=== PATIENT | female | born 1980 | race American Indian/Alaskan Native ===

== ENCOUNTER 2017-01-29 18:04 | Outpatient (CLI) | payer MEDICAID ==
[2017-01-29] MEDS ORDERED: LACTATED RINGERS 500 ML IV ONE (18:24)
[2017-01-29 18:54] LABS: Bacteria,Urine 2+ /HPF (Negative); Bilirubin,Urine NEG (Negative); Blood,Urine SM (Negative); Ketones,Urine NEG (Negative); Leukocyte Esterase,Urine LG (Negative); Mucus,Urine FEW /HPF; Nitrite,Urine NEG (Negative); Protein,Urine <15 mg/dL mg/dL (Negative); Urobilinogen,Urine < 2.0 mg/dL (<2.0)
[2017-01-29 18:55] LABS: Trichomonas,Urine Present /HPF
[2017-01-29 20:32] LABS: Urine Drugs of Abuse Note Disclamer
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
[2017-01-29] MEDS ORDERED: MACROBID PO SCH (22:00)
[2017-01-30 00:41] VITALS: BP 105/61
--- NOTE | 2017-01-30 09:11 | Event Note ---
Date: 01/29/17 Rx for Macrobid 100 mg, #14, 1 po BID was called to [facility] pharmacy on [facility]. Advised patient she must rest more and increase her water intake. Advised patient to follow up with [facility]-INSTRUCTIONAL MATERIAL DIRECTOR on Wednesday02/01/17.
--- NOTE | 2017-01-30 10:41 | Ultrasound Report ---
Gestation: Single Position: Cephalic Amniotic Fluid: ABEBE = 15.1 cm Placenta: Fungal and right lateral Placental Grade: 1 Heart Rate: 128 BPM Cervical length: 3.2 cm (Normal > 3 cm)
== END 2017-01-30 02:03 | disposition home or self-care (01) ==
LOC: TRG 18:04
PROVIDERS: ATTEND Obstetrics & Gynecology
DX: O09.522 Supervision of elderly multigravida, second trimester (principal); O47.02 False labor before 37 completed weeks of gestation, second trimester; Z3A.27 27 weeks gestation of pregnancy
CPT/HCPCS: 36415; 59025; 76815; 80307; 81001; 82731; 87086; 96360; J7120

== ENCOUNTER 2017-04-04 13:21 | Inpatient (IN) | payer MEDICAID ==
[2017-04-04] MEDS ORDERED: BRETHINE SUB-Q PRN (14:02)
[2017-04-04] MEDS ORDERED: XYLOCAINE 2% INFILTRATI ONE (14:02)
[2017-04-04] MEDS ORDERED: ePHEDrine SULFATE IV PRN ×3 (14:02→17:03)
[2017-04-04] MEDS ORDERED: MINERAL OIL PO PRN (14:02)
[2017-04-04] MEDS ORDERED: BRETHINE IVP PRN (14:02)
[2017-04-04] MEDS ORDERED: VALTREX PO SCH (14:30)
--- NOTE | 2017-04-04 14:58 | History and Physical Report ---
History of Present Illness Date of examination: 04/04/17 Date of admission: 04/04/17 13:21 Chief complaint: Leaking of water from vagina since 12:00 PM today. History of present illness: 36 year old female presents at 35 weeks, 4 days gestation complaining of leaking of fluid from vagina since 12:00 PM today. . EDC 05/05/17. Patient has received care at [facility] OB-FUDGE CANDY MAKER. No records available here in L&D. Patient has a history of bipolar depression. She has a history of 3 previous deliveries and placental abruption during a previous after abdominal trauma. She also has a history of PIH. Past History Past Medical History: other (bipolar depression; PIH with previous ) Past Surgical History: no surgical history FUDGE CANDY MAKER History: herpes (history of + HSV 2 serology; no history of outbreaks; pt. denies lesions or prodromal symptoms) Family/Genetic History: diabetes, heart disease, hypertension, stroke Social history: single, smoking (smoked marijuana during ; pt. states she has stopped smoking), full code - Obstetrical History Expected Date of Delivery: 05/05/17 Actual Gestation: 35 Week(s) 4 Day(s) : 6 Para: 5 Hx # Term Pregnancies: 2 Number of Pregnancies: 4 Spontaneous Abortions: 0 Induced : 0 Number of Living Children: 4 Medications and Allergies Allergies Allergy/AdvReac Type Severity Reaction Status Date / Time penicillin Allergy Unknown Verified 01/21/15 17:59 Home Medications Medication Instructions Recorded Confirmed Last Taken Type Docusate Sodium [Colace CAP] 100 mg PO BID #60 capsule 01/24/15 Unknown Rx Active Meds: Active Medications Bupropion HCl (Wellbutrin Xl) 300 mg PO QDAY JESSICA Lactated Ringer's (Lactated Ringers) 1,000 mls @ 125 mls/hr IV DIRECT JESSICA Oxytocin/Sodium Chloride (Pitocin/Ns 20 Unit/1000ml Drip) 20 units in 1,000 mls @ 125 mls/hr IV DIRECT JESSICA Oxytocin/Sodium Chloride (Pitocin/Ns 30 Unit/500ml) 30 units in 500 mls @ 0 mls /hr IV TITR JESSIAC; Per Protocol PRN Reason: Protocol Vancomycin HCl (Vancomycin/Ns 1 Gm/250 Ml) 1 gm in 250 mls @ 167.007 mls/hr IV Q12H JESSICA PRN Reason: Protocol Mineral Oil (Mineral Oil) 30 ml PO QHS PRN PRN Reason: Constipation Valacyclovir HCl (Valtrex) 500 mg PO BID JESSICA Review of Systems All systems: negative (leaking of water from vagina) - Vital Signs Vital signs: Vital Signs Temp Pulse Resp BP 98.2 F 99 H 18 116/63 04/04/17 13:43 04/04/17 13:43 04/04/17 13:43 04/04/17 13:43 Temp Pulse Resp BP Pulse Ox 98.2 F 80 18 113/59 04/04/17 13:43 04/04/17 14:42 04/04/17 13:43 04/04/17 14:42 - Physical Exam Cardiovascular: Regular rate, Normal S1, Normal S2 Lungs: Positive: Clear to auscultation Abdomen: Positive: normal appearance Genitourinary (Female): Positive: normal external genitalia (no lesions seen on careful exam with bright light upon admission). Negative: perineal/vulvar lesions Vagina: Positive: other (pooling of clear amniotic fluid, large amount; positive fern test) Uterus: Positive: enlarged. Negative: tender Anus/Rectum: Positive: normal perianal skin Extremities: Positive: normal. Negative: tenderness, edema - Obstetrical FHR: category 1 Uterine Contraction Monitor Mode: External Cervical Dilatation: 3 Cervical Effacement Percentage: 50 station: -4 Uterine Contraction Pattern: Irregular Uterine Contraction Intensity: Moderate Results Result Diagrams: 04/04/17 14:28 All other labs normal. Assessment and Plan A: at 35 weeks, 4 days gestation. Spontaneous rupture of membranes. GBS unknown. Penicillin allergy. + HSV 2 serology. P: Admit. GBS prophylaxis. Valtrex suppression for + HSV 2 serology. Augmentation of labor. Anticipate . Dr. Leach also saw and spoke with patient today and is aware of SROM at 35 weeks, 4 days gestation.
[2017-04-04] MEDS ORDERED: VANCOMYCIN/NS 1 GM/250 ML 1 GM/250 ML BAG IV SCH (15:00)
[2017-04-04] MEDS ORDERED: LACTATED RINGERS 1,000 ML IV SCH (15:00)
[2017-04-04] MEDS ORDERED: PITOCin/NS 20 UNIT/1000ML DRIP 20 UNITS/1,000 ML BAG IV SCH (15:00)
[2017-04-04 15:02] LABS: Hematocrit 29.1 % (30.3-42.9); Hemoglobin 9.6 gm/dl (10.1-14.3); Mean Corpuscular HGB Conc 33 % (30-34); Mean Corpuscular Hemoglobin 25 pg (28-32); Mean Corpuscular Volume 75 fl (79-97); Platelet Count 232 K/mm3 (140-440); Red Cell Distribution Width 15.5 % (13.2-15.2); White Blood Count 9.1 K/mm3 (4.5-11.0)
[2017-04-04] MEDS: PITOCin/NS 30 UNIT/500ML 30 UNITS/500 ML BAG IV SCH ×5 (15:36→18:11)
[2017-04-04] MEDS ORDERED: ePHEDrine SULFATE ONE (15:42)
[2017-04-04] MEDS ORDERED: NARCAN 2 MG/2 ML IV PRN (16:07)
--- NOTE | 2017-04-04 16:07 | Anesthesia Consultation ---
Anesthesia Consult and Med Hx Date of service: 04/04/17 - Airway Anesthetic Teeth Evaluation: Good ROM Head & Neck: Adequate Mental/Hyoid Distance: Adequate Mallampati Class: Class II Intubation Access Assessment: Probably Good - Pulmonary Exam CTA: Yes - Cardiac Exam Cardiac Exam: RRR - Pre-Operative Health Status ASA Pre-Surgery Classification: ASA2 Proposed Anesthetic Plan: Epidural - Pulmonary Hx Asthma: No COPD: No Hx Pneumonia: No - Cardiovascular System Hx Hypertension: Yes - Central Nervous System Hx Seizures: No Hx Psychiatric Problems: No - Endocrine Hx Renal Disease: No Hx End Stage Renal Disease: No Hx Hypothyroidism: No Hx Hyperthyroidism: No - Hematic Hx Anemia: Yes Hx Sickle Cell Disease: No - Other Systems Hx Alcohol Use: No
[2017-04-04] MEDS ORDERED: fentaNYL-BUPIV 2 MCG/ML-0.125% 200 MCG/100 ML BAG EPIDURAL SCH (17:00)
[2017-04-04 18:47] LABS: Urine Drugs of Abuse Note Disclamer
[2017-04-04] MEDS ORDERED: NACL 0.9% 1000 ML 1,000 ML VG SCH (18:50)
[2017-04-04] MEDS ORDERED: NACL 0.9% 500 ML 0 ML ONE (18:57)
[2017-04-04] MEDS ORDERED: BRETHINE ONE ×2 (18:59→19:02)
[2017-04-04] MEDS ORDERED: NACL 0.9% 1000 ML 1,000 ML ONE (19:05)
[2017-04-04] MEDS ORDERED: REGLAN ONE (19:07)
[2017-04-04] MEDS ORDERED: BICITRA ONE (19:07)
[2017-04-04] MEDS ORDERED: PEPCID IV ONE (19:07)
--- NOTE | 2017-04-04 19:15 | Event Note ---
Date: 04/04/17 Patient had a prolonged FHR deceleration to tomasa of 60s returning to baseline of 120. Moderate FHR variability. Patient positioned in lateral position, then on hands and knees. Pitocin stopped. O2 per face mask at 10 LPM; IV fluid bolus LR. Amnioinfusion started. Brethine 0.25 mg SQ given. FHR now at baseline of 120 with minimal to moderate variability and no decelerations. Contractions q 4- 6 minutes. Uterus palpates soft between contractions. Notified Dr. Leach of prolonged heart rate deceleration and interventions taken and cervical exam. Patient's cervix is 4-5/60/-1 with a contraction. Will observe closely.
--- NOTE | 2017-04-04 19:42 | Event Note ---
Date: 04/04/17 Patient is now 7 cm dilated and -1 station. FHR baseline 125-130 with moderate variability and accelerations. Contractions have spaced. Pitocin re-started at 2 milliunits per minute. Uterus palpates soft. Patient is comfortable. Fluid bolus stopped. Amnioinfusion continues.
[2017-04-04] MEDS ORDERED: BRETHINE SUB-Q ONE (20:00)
[2017-04-04 20:02] LABS: HIV-1 Antigen p24 Non React (Non React); HIVR-1/2 Ab Non React (Non React)
[2017-04-04] MEDS ORDERED: LANSINOH TP PRN (23:11)
[2017-04-04] MEDS ORDERED: TYLENOL PO PRN (23:11)
[2017-04-04] MEDS ORDERED: TUCKS PAD TP PRN (23:11)
[2017-04-04] MEDS ORDERED: MILK OF MAGNESIA PO PRN (23:11)
[2017-04-04] MEDS ORDERED: DULCOLAX PR PRN (23:11)
--- NOTE | 2017-04-04 23:32 | Procedure Note ---
OB Delivery Note - Vaginal Delivery presentation: vertex Delivery position: OA Intrapartum events: none Delivery induction: none Delivery augmentation: pitocin Delivery monitor: external FHT, external uterine, internal FHT, internal uterine Route of delivery: Delivery placenta: spontaneous Delivery cord: other (short cord) Delivery laceration: none Anesthesia: epidural Delivery comments: Spontaneous vaginal delivery of liveborn male OA over intact perineum with apgars of 7 and 8. Baby's weight 4 lb. 13 oz. Baby delivered easily. Baby bulb suctioned; spontaneous cry and respirations. Short cord. 3 vessel cord double clamped and cut. Baby taken to radiant warmer. NICU and respiratory present for delivery. Spontaneous delivery of intact placenta and membranes by sanchez mechanism. EBL 250 ml. Pitocin to IV fluids after delivery of placenta. Fundus firm and midline. No lacerations noted. Sponge count correct. Vaginal sweep negative. Mother and baby stable in birthing room.
[2017-04-04] MEDS ORDERED: PITOCin/NS 20 UNIT/1000ML DRIP 20,000 MILLIUNITS/1,000 ML BAG IV ONE (23:34)
[2017-04-04] MEDS ORDERED: SODIUM CHLORIDE FLUSH SYRINGE 10 ML IV PRN (23:45)
[2017-04-05] MEDS: MOTRIN PO SCH ×4 (00:33→19:00)
[2017-04-05] MEDS: NORCO 5/325 PO PRN ×3 (01:48→16:40)
[2017-04-05] MEDS ORDERED: WELLBUTRIN XL PO SCH (08:00)
[2017-04-05] MEDS: WELLBUTRIN XL PO SCH (08:15)
--- NOTE | 2017-04-05 09:28 | Progress Note ---
Assessment and Plan A: PPD 1 - stable P: Continue care Subjective - Subjective Date of service: 04/05/17 Principal diagnosis: Patient reports: appetite normal : doing well Objective - Vital Signs Latest vital signs: Vital Signs Temp Pulse Resp BP BP Pulse Ox 04/05/17 08:17 98.6 F 82 16 90/48 100 04/05/17 08:16 96/54 04/05/17 06:51 18 04/05/17 04:10 97.7 F 80 18 95/56 04/05/17 01:48 18 04/05/17 01:00 98.5 F 84 18 95/52 04/05/17 00:36 75 107/57 04/05/17 00:33 18 04/04/17 23:07 94 H 105/60 04/04/17 23:06 88 111/55 04/04/17 22:57 85 104/59 04/04/17 22:55 95 H 112/59 04/04/17 22:53 101 H 106/61 04/04/17 22:52 93 H 100/50 04/04/17 22:48 87 120/60 04/04/17 22:44 98 H 101/52 04/04/17 22:42 106 H 125/58 04/04/17 22:40 117 H 146/66 04/04/17 22:38 91 H 127/56 04/04/17 22:35 96 H 119/62 04/04/17 22:33 86 108/60 04/04/17 22:31 101 H 109/59 04/04/17 22:29 100 H 119/61 04/04/17 22:27 94 H 119/60 04/04/17 22:26 108 H 116/55 04/04/17 22:20 101 H 106/57 04/04/17 22:17 62 116/76 04/04/17 22:15 97 H 109/67 04/04/17 22:13 96 H 116/68 04/04/17 22:11 86 111/59 04/04/17 22:10 112 H 108/63 04/04/17 22:07 181 H 108/61 04/04/17 22:06 86 105/59 04/04/17 22:04 106 H 98/72 04/04/17 22:02 95 H 107/60 04/04/17 21:56 83 116/59 04/04/17 21:54 64 108/66 04/04/17 21:52 100 H 118/62 04/04/17 21:50 99 H 112/68 04/04/17 21:47 93 H 117/51 04/04/17 21:46 100 H 103/57 04/04/17 21:39 96 H 105/57 04/04/17 21:38 103 H 106/57 04/04/17 21:36 107 H 97/59 04/04/17 21:34 106 H 101/62 04/04/17 21:32 108 H 107/59 04/04/17 21:29 88 90/59 04/04/17 21:27 92 H 94/62 04/04/17 21:25 82 96/59 04/04/17 21:23 81 95/59 04/04/17 21:22 85 102/56 04/04/17 21:20 63 93/57 04/04/17 21:18 102 H 108/54 04/04/17 21:16 86 134/47 04/04/17 21:13 100 H 133/61 04/04/17 21:12 100 H 126/57 04/04/17 21:07 75 112/76 04/04/17 21:06 75 109/72 04/04/17 21:04 90 102/77 04/04/17 21:01 110/78 04/04/17 20:59 80 107/71 04/04/17 20:57 78 108/72 04/04/17 20:55 89 108/66 04/04/17 20:54 72 106/59 04/04/17 20:49 76 109/70 04/04/17 20:48 93 H 106/67 04/04/17 20:45 77 116/69 04/04/17 20:43 75 116/72 04/04/17 20:41 76 111/70 04/04/17 20:39 67 114/71 04/04/17 20:37 74 115/67 04/04/17 20:35 74 110/67 04/04/17 20:33 100 H 114/63 04/04/17 20:31 97 H 115/62 04/04/17 20:29 79 112/56 04/04/17 20:27 99 H 111/61 04/04/17 20:26 99 H 114/58 04/04/17 20:23 96 H 115/80 04/04/17 20:21 81 113/79 04/04/17 20:19 93 H 115/73 04/04/17 20:17 93 H 115/74 04/04/17 20:15 90 116/75 04/04/17 20:14 86 115/64 04/04/17 20:12 102 H 120/58 04/04/17 20:10 96 H 113/69 04/04/17 20:08 88 108/56 04/04/17 20:06 90 111/67 04/04/17 20:03 82 107/71 04/04/17 20:01 96 H 108/66 04/04/17 19:59 86 109/67 04/04/17 19:58 66 109/66 04/04/17 19:54 111 H 106/66 04/04/17 19:51 94 H 103/62 04/04/17 19:49 91 H 105/63 04/04/17 19:47 103 H 109/61 04/04/17 19:45 108 H 106/61 04/04/17 19:43 110 H 98/54 04/04/17 19:42 96 H 104/57 04/04/17 19:30 85 97/75 04/04/17 19:28 101/70 04/04/17 19:25 89 107/60 04/04/17 19:24 96 H 106/57 04/04/17 19:21 90 104/60 04/04/17 19:19 85 98/60 04/04/17 19:17 96 H 99/59 04/04/17 19:16 73 100/55 04/04/17 19:13 87 103/56 04/04/17 19:12 75 112/56 04/04/17 19:09 85 104/58 04/04/17 19:08 85 100/56 04/04/17 19:06 108 H 121/68 04/04/17 18:59 62 103/55 04/04/17 18:57 68 105/67 04/04/17 18:55 59 L 103/63 04/04/17 18:53 65 104/60 11/12/17 18:52 84 104/57 04/04/17 18:50 68 103/56 12/17 18:47 67 92/54 17 18:45 78 93/54 17 18:44 81 91/51 04/04/17 18:42 92 H 97/54 17 18:40 88 114/55 12/17 18:37 85 90/54 17 18:35 65 100/53 04/04/17 18:33 71 94/50 17 18:31 84 98/54 17 18:29 88 96/58 17 18:27 85 94/58 17 18:26 71 91/53 17 18:24 90 93/54 17 18:22 82 94/51 17 18:19 109 H 126/75 17 18:16 99 H 95/51 17 18:13 88 100/59 17 18:12 91 H 102/59 17 18:09 90 100/49 17 18:05 75 95/52 04/04/17 18:04 75 103/58 17 18:02 81 107/52 17 17:59 88 97/56 17 17:57 65 104/59 17 17:55 69 105/57 04/04/17 17:53 74 103/58 17 17:51 84 108/70 17 17:50 64 106/63 17 17:48 67 103/67 17 17:45 60 104/61 17 17:43 65 106/59 04/04/17 17:41 65 94/52 17 17:40 70 94/57 17 17:37 69 106/62 17 17:36 69 102/62 12/17 17:33 67 98/56 17 17:31 65 101/60 12/17 17:29 63 100/59 12/17 17:27 63 98/53 17 17:25 60 101/60 04/04/17 17:23 70 98/65 04/04/17 17:21 64 99/58 04/04/17 17:20 65 99/55 04/04/17 17:19 64 92/54 04/04/17 17:16 62 105/52 04/04/17 17:14 71 102/55 04/04/17 17:12 67 109/55 04/04/17 17:10 60 110/53 04/04/17 17:08 66 109/54 04/04/17 17:05 76 96/51 04/04/17 17:03 81 87/50 04/04/17 17:02 71 93/50 04/04/17 17:00 98.5 F 68 90/46 04/04/17 16:58 81 102/59 04/04/17 16:55 88 100/57 04/04/17 16:53 74 95/57 98 04/04/17 16:51 72 90/55 04/04/17 16:49 84 92/55 04/04/17 16:48 73 98 04/04/17 16:47 77 92/54 04/04/17 16:46 66 100/56 04/04/17 16:44 89 104/75 04/04/17 16:43 65 98 04/04/17 16:42 88 98/67 04/04/17 16:40 65 100/62 04/04/17 16:38 71 90/53 97 04/04/17 16:36 64 106/68 04/04/17 16:33 68 108/64 100 04/04/17 16:31 92 H 102/61 04/04/17 16:30 79 101/58 17 16:28 89 100 04/04/17 16:27 77 105/62 04/04/17 16:25 90 101/59 04/04/17 16:23 66 103/60 100 04/04/17 16:21 92 H 102/66 17 16:19 93 H 101/58 17 16:18 86 109/56 96 04/04/17 16:17 90 92 17 16:15 84 105/60 17 16:13 74 97/55 98 04/04/17 16:11 86 96/52 04/04/17 16:09 96 H 99/57 72 L 04/04/17 16:08 91 H 100 04/04/17 16:07 80 109/57 04/04/17 16:06 106/61 04/04/17 16:03 83 97/55 04/04/17 16:02 75 99/53 04/04/17 15:58 109 H 107/63 04/04/17 15:43 78 115/68 04/04/17 15:27 75 107/56 04/04/17 15:12 79 108/66 04/04/17 14:58 69 112/62 04/04/17 14:42 80 113/59 04/04/17 14:27 73 108/60 04/04/17 14:12 77 114/63 04/04/17 13:57 73 110/61 04/04/17 13:43 98.2 F 99 H 18 116/63 116/63 Intake and Output 04/04/17 04/05/17 04/05/17 23:59 07:59 15:59 Intake Total 13.133 240 Output Total 1100 1100 Balance -1086.867 -860 Intake: IV 13.133 PITOCin/NS 30 UNIT/500ML 13.133 30 units In 500 ml @ Per Protocol IV TITR JESSICA Rx#: [id number] Intake, Free Water 240 Output: Urine 1100 1100 Indwelling Catheter 1100 500 Void 600 Other: Total, Output Amount 300 600 # Voids Indwelling Catheter 1 2 Weight 71.214 kg Estimated Blood Loss 250 Patient Weight 04/05/17 23:59 Weight 71.214 kg - Exam Breasts: Present: normal Cardiovascular: Present: Regular rate Lungs: Present: Clear to auscultation Abdomen: Present: normal appearance, soft Vulva: both: normal Uterus: Present: normal, fundal height below umbilicus Extremities: Present: normal Deep Tendon Reflex Grade: Normal +2 - Labs Labs: Abnormal lab results 04/04/17 Range/Units 14:28 Hgb 9.6 L (10.1-14.3) gm/dl Hct 29.1 L (30.3-42.9) % MCV 75 L (79-97) fl MCH 25 L (28-32) pg RDW 15.5 H (13.2-15.2) %
[2017-04-05 11:22] LABS: Hematocrit 24.3 % (30.3-42.9)
--- NOTE | 2017-04-05 14:59 | Progress Note ---
Subjective Date of service: 04/05/17 Principal diagnosis: Interval history: 1st day after normal vaginal delivery Patient is in the bed, comfortable. Pain is well controlled with pain meds. Ambulated well. No residual neurological deficit. No anesthesia complications Objective - Constitutional Vitals: Vital Signs - 12hr 04/05/17 04/05/17 04/05/17 04:10 06:51 08:16 Temperature 97.7 F Pulse Rate 80 Respiratory 18 18 Rate Blood Pressure Blood Pressure 95/56 96/54 [Right] O2 Sat by Pulse Oximetry 04/05/17 08:17 Temperature 98.6 F Pulse Rate 82 Respiratory 16 Rate Blood Pressure 90/48 Blood Pressure [Right] O2 Sat by Pulse 100 Oximetry - Labs CBC & Chem 7: 04/05/17 10:56 Labs: Abnormal lab results 04/04/17 04/05/17 Range/Units 14:28 10:56 Hgb 9.6 L 8.0 L (10.1-14.3) gm/dl Hct 29.1 L 24.3 L (30.3-42.9) % MCV 75 L (79-97) fl MCH 25 L (28-32) pg RDW 15.5 H (13.2-15.2) %
--- NOTE | 2017-04-05 15:09 | Event Note ---
Date: 04/05/17 Called to see patient said to be having abdominal pain with distention. Patient seen lying supine in bed in no apparent distress. Alert and oriented 3 complaining of abdominal pain. She denies nausea and vomiting, tolerating oral intake. Passing gas but no bowel movement yet. Her abdomen appears distended but soft, no guarding or rebound. Has normal bowel sounds A: Distended Abd ?gas P: -ABD sono now -Encourage ambulation -Disposition after result
--- NOTE | 2017-04-05 16:51 | Ultrasound Report ---
ULTRASOUND ASCITES SCAN INDICATION: Distended abdomen following . COMPARISON: None similar. FINDINGS: Sonographic imaging of all 4 abdominal quadrants demonstrates no significant ascites. CONCLUSION: No significant ascites seen. Thank you for the opportunity to participate in this patient's care.
[2017-04-05] MEDS ORDERED: BOOSTRIX IM ONE (21:00)
[2017-04-06] MEDS: MOTRIN PO SCH ×4 (00:10→22:44)
[2017-04-06] MEDS: NORCO 5/325 PO PRN ×3 (08:16→23:33)
[2017-04-06] MEDS: WELLBUTRIN XL PO SCH (08:17)
--- NOTE | 2017-04-06 09:14 | Progress Note ---
Assessment and Plan A; PPD #2 -stable Abdominal distention P; Abdominal binder D/C in am Subjective - Subjective Date of service: 04/06/17 Principal diagnosis: Patient reports: appetite normal : doing well Objective - Vital Signs Latest vital signs: Vital Signs Temp Pulse Resp BP BP Pulse Ox 04/06/17 04:35 98.6 F 71 16 120/70 04/06/17 00:30 98.6 F 76 16 121/78 04/05/17 20:30 98.6 F 77 16 101/69 04/05/17 15:17 98.4 F 75 20 108/64 96 04/05/17 12:39 98.3 F 89 20 101/41 Intake and Output 04/05/17 04/06/17 04/06/17 22:59 06:59 14:59 Intake Total 240 1050 Output Total 200 Balance 40 1050 Intake: Oral 240 450 Intake, Free Water 600 Output: Urine 200 Other: Total, Intake Amount 250 Voiding Method Toilet - Exam Breasts: Present: deferred Cardiovascular: Present: Regular rate Abdomen: Present: soft, distention Vulva: both: normal Uterus: Present: fundal height below umbilicus Extremities: Present: normal Deep Tendon Reflex Grade: Normal +2 - Labs Labs: Abnormal lab results 04/05/17 Range/Units 10:56 Hgb 8.0 L (10.1-14.3) gm/dl Hct 24.3 L (30.3-42.9) %
--- NOTE | 2017-04-06 09:18 | Discharge Summary ---
Providers - Providers Date of Admission: 04/04/17 13:21 Date of discharge: 04/07/17 Attending physician: VÍCTOR AGUIRRE MD 04/04/17 23:34 Consult to Case Management [CONS] Urgent Services Needed at Discharge: Other Notified:: no Additional Physician Instructions: Patient delivered prematurely; needs help obtaining baby clothes and supplies. Primary care physician: WIRELESS SALES MANAGER Hospitalization Reason for admission: active labor Delivery: Episiotomy: none Laceration: none Incision: normal complications: none Discharge diagnosis: IUP at term delivered baby: male Condition at discharge: Good Disposition: DC-01 TO HOME OR SELFCARE Plan - Provider Discharge Summary Activity: routine, no sex for 6 weeks, no strenuous exercise Diet: routine Instructions: routine Additional instructions: [] Smoking cessation referral if applicable(refer to patient education folder for contact #) [] Refer to [facility]'s [facility] Booklet Call your doctor immediately for: * Fever > 100.5 * Heavy vaginal bleeding ( >1 pad per hour) * Severe persistent headache * Shortness of breath * Reddened, hot, painful area to leg or breast * Drainage or odor from incision. * Keep incision clean and dry at all times and follow doctor's instructions regarding bathing/showering - Follow up plan Follow up: PRIMARY CARE, [Primary Care Provider] - 6 Weeks
[2017-04-07] MEDS: NORCO 5/325 PO PRN ×2 (05:31→12:52)
[2017-04-07] MEDS: MOTRIN PO SCH ×2 (05:31→12:52)
[2017-04-07] MEDS: WELLBUTRIN XL PO SCH (08:22)
[2017-04-07 18:19] VITALS: BP 116/82
== END 2017-04-07 15:00 | disposition home or self-care (01) | DRG 774 ==
LOC: LD 13:21 → OB 04-05 01:10
PROVIDERS: ADMIT Obstetrics & Gynecology; ATTEND Obstetrics & Gynecology
PROC: 10E0XZZ Delivery of Products of Conception, External Approach (ICD-10-PCS; principal; 2017-04-04)
PROC: 4A0HXCZ Measurement of Products of Conception, Cardiac Rate, External Approach (ICD-10-PCS; 2017-04-04)
PROC: 3E0R3BZ Introduction of Anesthetic Agent into Spinal Canal, Percutaneous Approach (ICD-10-PCS; 2017-04-04)
PROC: 00HU33Z Insertion of Infusion Device into Spinal Canal, Percutaneous Approach (ICD-10-PCS; 2017-04-04)
DX: O60.14X0 Preterm labor third trimester with preterm delivery third trimester, not applicable or unspecified (principal); O10.92 Unspecified pre-existing hypertension complicating childbirth; O99.344 Other mental disorders complicating childbirth; O76 Abnormality in fetal heart rate and rhythm complicating labor and delivery; F31.9 Bipolar disorder, unspecified; Z3A.35 35 weeks gestation of pregnancy; Z37.0 Single live birth; Z83.3 Family history of diabetes mellitus; Z82.49 Family history of ischemic heart disease and other diseases of the circulatory system; Z82.3 Family history of stroke; Z88.0 Allergy status to penicillin; Z79.899 Other long term (current) drug therapy; O98.52 Other viral diseases complicating childbirth; B00.9 Herpesviral infection, unspecified; O99.324 Drug use complicating childbirth; F12.90 Cannabis use, unspecified, uncomplicated; O69.3XX0 Labor and delivery complicated by short cord, not applicable or unspecified
CPT/HCPCS: 36415; 76705; 80307; 85014; 85018; 85027; 86592; 86706; 86762; 86803; 86850; 86900; 86901; 87806; J2590; J2765; J3105; J3370; J7030; J7040; J7120